=== PATIENT | female | born 1935 | race American Indian/Alaskan Native ===

== ENCOUNTER 2017-04-12 00:23 | Emergency (ER) | payer MEDICARE, MEDICAID ==
[~2017-04-12] VITALS: Ht 162.6 cm; Wt 89.7 kg
[2017-04-12] MEDS ORDERED: SODIUM CHLORIDE FLUSH 10ML SYR IVF ONE (01:30)
[2017-04-12] MEDS ORDERED: SODIUM CHLORIDE 0.9% 1,000ML IV ONE (01:30)
[2017-04-12 01:34] LABS: PATH.CAST-FLAG NOT PRESENT; SPERM-FLAG NOT PRESENT; SRC-FLAG NOT PRESENT; XTAL-FLAG NOT PRESENT; YLC-FLAG NOT PRESENT
[2017-04-12] MEDS ORDERED: CEFTRIAXONE PMX 1GM/50ML 50 ML ONE (01:57)
[2017-04-12] MEDS ORDERED: CEFTRIAXONE PMX 1GM/50ML 50 ML IVPB ONE (02:00)
[2017-04-12] MEDS ORDERED: HYDROmorphone 1 MG/ML, 1ML IM PRN (02:00)
[2017-04-12 02:20] LABS: ASPARTATE AMINO TRANSFERASE 25 U/L (15-37); BLOOD UREA NITROGEN 22 mg/dL (7-18)
[2017-04-12] MEDS ORDERED: HYDROmorphone 1 MG/ML, 1ML ONE (02:33)
[2017-04-12 04:43] VITALS: BP 140/58
[2017-04-13] MEDS ORDERED: warfarin (04:08)
[2017-04-13] MEDS ORDERED: triamterene (04:08)
[2017-04-13] MEDS ORDERED: atorvastatin (04:08)
[2017-04-13] MEDS ORDERED: metoprolol (04:08)
[2017-04-13] MEDS ORDERED: loratadine (04:08)
[2017-04-13] MEDS ORDERED: flecainide (04:08)
== END 2017-04-12 04:45 | disposition home or self-care (01) ==
LOC: ED 03:44
DX: N10 Acute pyelonephritis (principal); I10 Essential (primary) hypertension; I48.91 Unspecified atrial fibrillation; Z79.01 Long term (current) use of anticoagulants
CPT/HCPCS: 36415; 74176; 80053; 81001; 83605; 84145; 85025; 85610; 85730; 87040; 87086; 96365; 96372; 99285; J0696; J1170; J7030

== ENCOUNTER 2017-04-13 03:26 | Inpatient (IN) | payer MEDICARE, MEDICAID ==
[~2017-04-13] VITALS: Ht 165.1 cm; Wt 92.7 kg
[2017-04-13] MEDS ORDERED: MORPHINE SULFATE 4 MG/ML, 1ML IVPush PRN (04:00)
[2017-04-13] MEDS ORDERED: SODIUM CHLORIDE 0.9% 1,000ML IVBOLUS ONE (04:00)
[2017-04-13] MEDS ORDERED: ONDANSETRON 2MG/ML, 2ML IVPush ONE (04:00)
[2017-04-13] MEDS ORDERED: SODIUM CHLORIDE FLUSH 10ML SYR IVF ONE (04:00)
[2017-04-13] MEDS ORDERED: KETOROLAC 30 MG/1 ML IVPush ONE (04:00)
[2017-04-13] MEDS ORDERED: warfarin (04:08)
[2017-04-13] MEDS ORDERED: atorvastatin (04:08)
[2017-04-13] MEDS ORDERED: flecainide (04:08)
[2017-04-13] MEDS ORDERED: loratadine (04:08)
[2017-04-13] MEDS ORDERED: triamterene (04:08)
[2017-04-13] MEDS ORDERED: metoprolol (04:08)
[2017-04-13] MEDS ORDERED: CEFTRIAXONE PMX 1GM/50ML 50 ML ONE (04:10)
[2017-04-13] MEDS ORDERED: KETOROLAC 30 MG/1 ML ONE (04:10)
[2017-04-13] MEDS ORDERED: CEFTRIAXONE PMX 1GM/50ML 50 ML IV ONE (04:30)
[2017-04-13 04:57] LABS: BLOOD UREA NITROGEN 15 mg/dL (7-18)
[2017-04-13] MEDS ORDERED: LABETALOL 5MG/ML, 20ML IVPush PRN (05:00)
[2017-04-13] MEDS ORDERED: POLYETHYLENE GLYCOL 17 GM PACKET PO PRN (05:00)
[2017-04-13] MEDS ORDERED: ONDANSETRON 2MG/ML, 2ML IVPush PRN (05:00)
[2017-04-13] MEDS ORDERED: ACETAMINOPHEN 325 MG TABLET PO PRN (05:00)
[2017-04-13] MEDS ORDERED: DOCUSATE 100 MG CAPSULE PO PRN (05:00)
[2017-04-13] MEDS ORDERED: hydrALAzine 20 MG/ML, 1ML IVPush PRN (05:00)
[2017-04-13] MEDS ORDERED: BISACODYL 10 MG SUPP PR PRN (05:00)
[2017-04-13] MEDS ORDERED: PROMETHAZINE 25 MG/ML, 1ML IM PRN (05:00)
[2017-04-13 06:43] VITALS: BP 186/80
[2017-04-13] MEDS: FLECAINIDE 50MG TABLET PO SCH ×2 (07:27→20:14)
[2017-04-13] MEDS: METOPROLOL TARTRATE 25 MG TABLET PO SCH ×2 (07:27→20:14)
[2017-04-13] MEDS: NS + 20MEQ KCL 1,000 ML IV SCH ×2 (08:30→23:32)
[2017-04-13] MEDS: morphine SULFATE 10 MG/ML, 1ML IVPush PRN ×4 (11:40→23:32)
[2017-04-13 12:35] VITALS: BP 169/80
[2017-04-13] MEDS: CEFTRIAXONE PMX 1GM/50ML 50 ML IV SCH (16:38)
[2017-04-13 19:53] VITALS: BP 181/77
[2017-04-14] VITALS (8 sets, daily range): BP systolic 138–198; BP diastolic 62–98
[2017-04-14] MEDS ORDERED: FLEC50TA25 PO (00:22)
[2017-04-14] MEDS ORDERED: ATOR40TA78 PO (00:22)
[2017-04-14] MEDS ORDERED: TRIA1CAP3 PO (00:22)
[2017-04-14] MEDS ORDERED: WARF5TAB7 PO (00:22)
[2017-04-14] MEDS ORDERED: WARF7.5T6 PO (00:23)
[2017-04-14] MEDS: morphine SULFATE 10 MG/ML, 1ML IVPush PRN ×2 (02:25→05:39)
[2017-04-14] MEDS: CEFTRIAXONE PMX 1GM/50ML 50 ML IV SCH ×2 (04:04→15:37)
[2017-04-14 05:27] LABS: BLOOD UREA NITROGEN 10 mg/dL (7-18)
[2017-04-14 05:28] LABS: ASPARTATE AMINO TRANSFERASE 17 U/L (15-37)
[2017-04-14] MEDS: METOPROLOL TARTRATE 25 MG TABLET PO SCH ×2 (05:39→18:00)
[2017-04-14] MEDS ORDERED: LOSARTAN 50MG TABLET PO SCH ×2 (09:00→18:00)
[2017-04-14] MEDS: FLECAINIDE 50MG TABLET PO SCH ×2 (09:03→20:53)
[2017-04-14] MEDS: HYDROcodone/APAP 5/325 TABLET PO PRN ×5 (09:03→23:30)
[2017-04-14] MEDS: TRIAMTERENE-HCTZ 37.5/25 MG TABLET PO SCH (15:37)
[2017-04-14] MEDS ORDERED: ACETAMINOPHEN 325 MG TABLET PO PRN (16:00)
[2017-04-14] MEDS ORDERED: DOCUSATE 100 MG CAPSULE PO PRN (16:00)
[2017-04-14] MEDS ORDERED: LABETALOL 5MG/ML, 20ML IVPush PRN (16:00)
[2017-04-14] MEDS ORDERED: PROMETHAZINE 25 MG/ML, 1ML IM PRN (16:00)
[2017-04-14] MEDS ORDERED: BISACODYL 10 MG SUPP PR PRN (16:00)
[2017-04-14] MEDS ORDERED: POLYETHYLENE GLYCOL 17 GM PACKET PO PRN (16:00)
[2017-04-14] MEDS ORDERED: ONDANSETRON 2MG/ML, 2ML IVPush PRN (16:00)
[2017-04-14] MEDS ORDERED: hydrALAzine 20 MG/ML, 1ML IVPush PRN (16:00)
[2017-04-14] MEDS ORDERED: WARFARIN 7.5 MG TABLET PO-COUM SCH (18:00)
[2017-04-14] MEDS ORDERED: TRIAMTERENE-HCTZ 37.5/25 MG TABLET PO SCH (21:00)
[2017-04-14] MEDS ORDERED: ATORVASTATIN 40 MG TABLET PO SCH (21:00)
[2017-04-15 00:53] VITALS: BP 187/87
[2017-04-15] MEDS: LOSARTAN 50MG TABLET PO SCH ×2 (00:57→09:21)
[2017-04-15 03:39] VITALS: BP 153/78
[2017-04-15] MEDS: CEFTRIAXONE PMX 1GM/50ML 50 ML IV SCH (03:42)
[2017-04-15 05:38] VITALS: BP 199/76
[2017-04-15] MEDS: METOPROLOL TARTRATE 25 MG TABLET PO SCH (05:49)
[2017-04-15] MEDS: TRIAMTERENE-HCTZ 37.5/25 MG TABLET PO SCH (05:50)
[2017-04-15 06:28] VITALS: BP 165/91
[2017-04-15] MEDS: HYDROcodone/APAP 5/325 TABLET PO PRN (06:51)
[2017-04-15 08:00] VITALS: BP 157/77
[2017-04-15] MEDS: FLECAINIDE 50MG TABLET PO SCH (09:21)
[2017-04-15 09:26] VITALS: BP 161/77
[2017-04-16] MEDS ORDERED: WARFARIN 5 MG TABLET PO-COUM SCH (18:00)
== END 2017-04-15 13:20 | disposition left against medical advice (07) | DRG 690 ==
LOC: ED 03:43 → EDIP 04:08 → 4NOR 05:30
DX: N10 Acute pyelonephritis (principal); E78.5 Hyperlipidemia, unspecified; E87.6 Hypokalemia; I11.9 Hypertensive heart disease without heart failure; I48.91 Unspecified atrial fibrillation; T45.515A Adverse effect of anticoagulants, initial encounter; Z79.01 Long term (current) use of anticoagulants; Z80.0 Family history of malignant neoplasm of digestive organs
CPT/HCPCS: 36415; 74176; 76700; 80048; 80053; 80076; 81001; 82040; 83605; 83690; 84145; 85025; 85610; 85730; 87040; 87086; 96365; 96372; 96375; J0696; J1170; J1885; J3480; J2270; J7030